=== PATIENT | male | born 1965 | race Caucasian/White ===

== ENCOUNTER → 2019-06-17 | Outpatient (CLI) | payer OTHER ==
[~2019-06-17] MED LIST: ASPIRIN81 M2 PO; LIPOFEN150 MG PO; PEPCID40 MG PO; TUMS PO
== END ==
LOC: CAT 07:46
DX: Z13.6 Encounter for screening for cardiovascular disorders (principal); E78.00 Pure hypercholesterolemia, unspecified; I25.10 Atherosclerotic heart disease of native coronary artery without angina pectoris